=== PATIENT | female | born 1960 | race Hispanic/Latino ===

== ENCOUNTER → 2019-11-29 | Outpatient (CLI) | payer OTHER ==
[2019-11-29 09:21] LABS: BASOPHILS % (AUTO) 0.9 % (0.0-5.0); EOSINOPHILS % (AUTO) 2.3 % (0.0-8.0); HEMATOCRIT 42.2 % (36-48); LYMPHOCYTES % (AUTO) 39.1 % (21.0-51.0); MEAN CORPUSCULAR HEMOGLOBIN 27.7 pg (27.0-33.0); MEAN CORPUSCULAR HGB CONC 31.3 g/dL (32.0-36.0); MEAN CORPUSCULAR VOLUME 88.7 fL (79-99); MONOCYTES % (AUTO) 6.6 % (3.0-13.0); NEUTROPHILS % (AUTO) 50.9 % (40.0-77.0); PLATELET COUNT (AUTO) 284 K/uL (130-400); RED BLOOD CELL COUNT(AUTO) 4.76 MIL/uL (4.00-5.50); RED CELL DISTRIBUTION WIDTH 13.2 % (11.0-15.5); WHITE BLOOD COUNT (AUTO) 6.6 K/uL (4.8-10.8)
[2019-11-29 09:39] LABS: HEMOGLOBIN A1C 6.3 % (4.0-6.0)
[2019-11-29 09:52] LABS: ALBUMIN 3.8 g/dL (3.5-5.0); BILIRUBIN,TOTAL 0.6 mg/dL (0.2-1.0); CREATININE 0.7 mg/dL (0.5-1.5); POTASSIUM 4.3 mmol/L (3.5-5.1); TOTAL PROTEIN, SERUM 7.7 g/dL (6.0-8.3)
== END | disposition home or self-care (01) ==
LOC: LAB 08:04
PROVIDERS: ATTEND Internal Medicine Endocrinology, Diabetes & Metabolism
DX: E11.65 Type 2 diabetes mellitus with hyperglycemia (principal); E78.2 Mixed hyperlipidemia; D51.0 Vitamin B12 deficiency anemia due to intrinsic factor deficiency
CPT/HCPCS: 36415; 80053; 80061; 82043; 82570; 82607; 83036; 85025

== ENCOUNTER 2020-04-20 23:39 | Emergency (ER) | payer OTHER ==
[2020-04-21 00:10] LABS: BASOPHILS % (AUTO) 0.6 % (0.0-5.0); EOSINOPHILS % (AUTO) 1.7 % (0.0-8.0); HEMATOCRIT 40.7 % (36-48); LYMPHOCYTES % (AUTO) 47.2 % (21.0-51.0); MEAN CORPUSCULAR HGB CONC 32.2 g/dL (32.0-36.0); MONOCYTES % (AUTO) 5.8 % (3.0-13.0); NEUTROPHILS % (AUTO) 44.5 % (40.0-77.0); PLATELET COUNT (AUTO) 298 K/uL (130-400); RED BLOOD CELL COUNT(AUTO) 4.68 MIL/uL (4.00-5.50); RED CELL DISTRIBUTION WIDTH 13.3 % (11.0-15.5); WHITE BLOOD COUNT (AUTO) 10.9 K/uL (4.8-10.8)
[2020-04-21 00:19] LABS: CREATININE 0.8 mg/dL (0.5-1.5); POTASSIUM 3.9 mmol/L (3.5-5.1)
[2020-04-21 00:21] LABS: INR 0.89 (0.85-1.15); PARTIAL THROMBOPLASTIN TIME 27.7 SEC (26.3-35.5); PROTHROMBIN TIME 9.7 SEC (9.6-11.6)
[2020-04-21 00:23] LABS: ALBUMIN 3.9 g/dL (3.5-5.0); BILIRUBIN,TOTAL 0.4 mg/dL (0.2-1.0); TOTAL PROTEIN, SERUM 7.8 g/dL (6.0-8.3)
== END 2020-04-21 01:41 | disposition home or self-care (01) ==
LOC: EDH 23:39
DX: R07.89 Other chest pain (principal); E11.9 Type 2 diabetes mellitus without complications; Z86.73 Personal history of transient ischemic attack (TIA), and cerebral infarction without residual deficits; Z87.891 Personal history of nicotine dependence
CPT/HCPCS: 36415; 71045; 80053; 82550; 84484; 85025; 85610; 85730; 93005

== ENCOUNTER → 2020-11-05 | Outpatient (CLI) | payer OTHER ==
[2020-11-05 09:56] LABS: BASOPHILS % (AUTO) 1.2 % (0.0-5.0); EOSINOPHILS % (AUTO) 2.2 % (0.0-8.0); HEMATOCRIT 44.2 % (36-48); LYMPHOCYTES % (AUTO) 43.3 % (21.0-51.0); MEAN CORPUSCULAR HEMOGLOBIN 27.7 pg (27.0-33.0); MEAN CORPUSCULAR HGB CONC 31.7 g/dL (32.0-36.0); MEAN CORPUSCULAR VOLUME 87.5 fL (79-99); MONOCYTES % (AUTO) 6.5 % (3.0-13.0); NEUTROPHILS % (AUTO) 46.7 % (40.0-77.0); PLATELET COUNT (AUTO) 314 K/uL (130-400); RED BLOOD CELL COUNT(AUTO) 5.05 MIL/uL (4.00-5.50); RED CELL DISTRIBUTION WIDTH 13.5 % (11.0-15.5); WHITE BLOOD COUNT (AUTO) 6.8 K/uL (4.8-10.8)
[2020-11-05 10:16] LABS: ALBUMIN 3.8 g/dL (3.5-5.0); BILIRUBIN,TOTAL 0.8 mg/dL (0.2-1.0); CREATININE 0.6 mg/dL (0.5-1.5); THYROID STIMULATING HORMONE 2.63 uIU/mL (0.36-3.74); TOTAL PROTEIN, SERUM 7.8 g/dL (6.0-8.3)
== END | disposition home or self-care (01) ==
LOC: LAB 08:14
DX: E11.69 Type 2 diabetes mellitus with other specified complication (principal)
CPT/HCPCS: 36415; 80053; 82043; 82270; 84443; 85025

== ENCOUNTER 2024-10-10 20:43 | Inpatient (IN) | payer BC, OTHER ==
[~2024-10-10] VITALS: Ht 144.8 cm; Wt 68.0 kg
--- NOTE | 2024-10-10 20:51 | NUR ---
REPORT TO ROLO HERNANDEZ
[2024-10-10 21:25] LABS: BASOPHILS # (AUTO) 0.02 K/uL (0.00-0.20); BASOPHILS % (AUTO) 0.1 % (0.0-5.0); EOSINOPHILS # (AUTO) 0.15 K/uL (0.00-0.70); EOSINOPHILS % (AUTO) 1.1 % (0.0-8.0); HEMATOCRIT 42.6 % (36-48); IMMATURE GRANULOCYTE ABSOLUTE 0.03 K/uL (0-1); LYMPHOCYTES # (AUTO) 0.9 K/uL (1.0-4.8); LYMPHOCYTES % (AUTO) 6.7 % (21.0-51.0); MEAN CORPUSCULAR HEMOGLOBIN 28.8 pg (27.0-33.0); MEAN CORPUSCULAR HGB CONC 33.3 g/dL (32.0-36.0); MEAN CORPUSCULAR VOLUME 86.4 fL (79-99); MONOCYTES # (AUTO) 0.3 K/uL (0.1-1.0); NEUTROPHILS # (AUTO) 12.5 K/uL (1.8-7.7); NEUTROPHILS % (AUTO) 89.9 % (40.0-77.0); PLATELET COUNT (AUTO) 285 K/uL (130-400); RED BLOOD CELL COUNT(AUTO) 4.93 MIL/uL (4.00-5.50); RED CELL DISTRIBUTION WIDTH 13.1 % (11.0-15.5); WHITE BLOOD COUNT (AUTO) 13.9 K/uL (4.8-10.8)
[2024-10-10] MEDS: PANTOPrazole 40 MG TAB DR PO ONE (21:30)
[2024-10-10] MEDS: morPHINE 2 MG SYG IM ONE (21:31)
--- NOTE | 2024-10-10 21:33 | HMCIMG ---
CHEST 1VW CLINICAL HISTORY: Upper back pain, epigastric pain? hiatal hernia COMPARISON: 04/21/2020 TECHNIQUE: Single view of the chest was obtained. FINDINGS: Lungs are clear. The cardiac size. Bones are normal to mildly enlarged but stable. The bony structures are within normal limits. IMPRESSION: Stable borderline heart size.
[2024-10-10 21:43] LABS: CREATININE 0.8 mg/dL (0.5-1.0); POTASSIUM 3.6 mmol/L (3.5-5.1)
--- NOTE | 2024-10-10 22:10 | ERN ---
ED Note History of Present Illness Stated Complaint: NUMBNESS Chief Complaint: Multiple Complaints Time Seen by MD: 20:51 Dictation: This is a 63-year-old female who presented to the emergency room stating that she was at work and after she reached home she began experiencing epigastric pain radiating to the back as well as to the left side of the chest and flank area. She also had a little bit of tingling in the lower jaw and she was concerned as she had TIA in the past that she wanted to get it checked out. No loss of consciousness no diaphoresis. She had some nausea but no vomitings. No diarrhea. No facial droop, diplopia motor weakness or seizure activity. No visual changes. Temperature 99.7 pulse 89 respirations 20 blood pressure 139/77 with a pulse oximetry of 99% on room air Her chronic medical problems include diabetes mellitus and a history of TIA in her 30s Allergies: Coded Allergies: No Known Allergies (Verified Allergy, Unknown, 04/21/20) Past Medical History Past Medical History: Diabetes-Type II, TIA Surgical History: Hysterectomy, Other, Surgical History Other: SINUS, RT HAND Family History: Negative Social History: Negative History: Not Applicable RN Note Reviewed/Agreed w/PFSH: Yes Review of System Dictation Constitutional: Negative for fever,chills, and weight loss Eyes: Negative for injury, pain,redness, and discharge ENT: Negative for injury,pain or swelling Cardiovascular: Positive for chest pain, denies palpitations, and edema Respiratory: Negative for shortness of breath, cough, and wheezing, Abdomen/GI: Positive for abdominal pain, nausea, denies vomiting, diarrhea, and constipation Back: Negative for injury and pain : Negative for injury, bleeding and discharge MS/Extremity: Negative for injury and deformity Skin: Negative for rash, and discoloration Neuro: Negative for headache, weakness, numbness, tingling, and seizure Psych: Negative for suicide ideation, homicidal ideation, and hallucinations Initial Vital Sign VS Vital Signs Date Time Temp Pulse Resp B/P (MAP) Pulse Ox O2 Delivery O2 Flow Rate FiO2 10/10/24 20:44 99.7 89 20 139/74 100 Room Air 10/10/24 22:58 0 21 Physical Exam Dictation General: awake, alert, NAD Head/Face: Normocephalic, atraumatic Eyes: PERRL, EOMI, vision at baseline ENT: oral cavity clear, TMs clear, no signs of infection Neck: Trachea midline, supple, no nuchal rigidity Cardiovascular: RRR, normal S1/S2, No MRGs, no JVD reproducible tenderness in the epigastric area Respiratory: CTAB, no respiratory distress, No rales or wheezes Abdomen: Soft, non-tender, non-distended, normal bowel sounds, no guarding or rebound. Skin: Warm, dry, normal turgor, no rash MS/Extremity: Pulses equal, no cyanosis, neurovascular intact, FROM, tenderness in the entire back muscles Neuro: COAx4, GCS 15, strength 5/5, CN 2-12 intact, normal cerebellar exam, normal gait, Psych: Normal behavior, mood, and affect normal Extremities-trace edema without any palpable cords, Homans sign is negative Results (Laboratory/Radiology) Laboratory/Radiology Laboratory Tests Test 10/10/24 21:19 White Blood Count 13.9 K/uL (4.8-10.8) H Red Blood Count 4.93 MIL/uL (4.00-5.50) Hemoglobin 14.2 g/dL (12.0-16.0) Hematocrit 42.6 % (36-48) Mean Corpuscular Volume 86.4 fL (79-99) Mean Corpuscular Hemoglobin 28.8 pg (27.0-33.0) Mean Corpuscular Hemoglobin Concent 33.3 g/dL (32.0-36.0) Red Cell Distribution Width 13.1 % (11.0-15.5) Platelet Count 285 K/uL (130-400) Mean Platelet Volume 10.4 fL (7.5-10.5) Immature Granulocyte % (Auto) 0.2 % (0-1) Neutrophils (%) (Auto) 89.9 % (40.0-77.0) H Lymphocytes (%) (Auto) 6.7 % (21.0-51.0) L Monocytes (%) (Auto) 2.0 % (3.0-13.0) L Eosinophils (%) (Auto) 1.1 % (0.0-8.0) Basophils (%) (Auto) 0.1 % (0.0-5.0) Neutrophils # (Auto) 12.5 K/uL (1.8-7.7) H Lymphocytes # (Auto) 0.9 K/uL (1.0-4.8) L Monocytes # (Auto) 0.3 K/uL (0.1-1.0) Eosinophils # (Auto) 0.15 K/uL (0.00-0.70) Basophils # (Auto) 0.02 K/uL (0.00-0.20) Absolute Immature Granulocyte (auto 0.03 K/uL (0-1) Nucleated Red Blood Cells 0.0 % (0.0-0.19) White Cell Morphology Comment See comments Sodium Level 140 mmol/L (136-145) Potassium Level 3.6 mmol/L (3.5-5.1) Chloride Level 104 mmol/L (101-111) Carbon Dioxide Level 27 mmol/L (21-32) Blood Urea Nitrogen 8 mg/dL (7-18) Creatinine 0.8 mg/dL (0.5-1.0) Glomerular Filtration Rate Calc 83 mL/min (>90) Random Glucose 164 mg/dL (70-105) H Total Calcium 9.1 mg/dL (8.5-10.1) Troponin I High Sensitivity < 4 ng/L (4-50) L Lipase 28 U/L (16-77) Labs Reviewed?: Yes EKG Comment: Lead EKG done on 10/10/2024 10:46 p.m. showed a sinus rhythm with a heart rate of 81, MO interval 178, QRS 76, QT/QTC 360/417. Impression normal sinus rhythm with nonspecific ST-T changes no acute ST elevations or deep ST depressions. Overall anterior leads it is low voltage Interpreted by Dr. Sagastume X-RAY Comment: PATIENT: JEANNINE TRUONG MR#: [id number] : 1960 SEX: F AGE: 63 LOCATION: ED ORDER 01 STATUS: REG ER REPORT#: [id number] SERVICE 00 REASON: Upper back pain, epugastric pain? hiatal hernia ORDERING PHYSICIAN: DONNIE SAGASTUME MD PROCEDURE: CXR1VW - CHEST 1VW CHEST 1VW CLINICAL HISTORY: Upper back pain, epigastric pain? hiatal hernia COMPARISON: 04/21/2020 TECHNIQUE: Single view of the chest was obtained. FINDINGS: Lungs are clear. The cardiac size. Bones are normal to mildly enlarged but stable. The bony structures are within normal limits. IMPRESSION: Stable borderline heart size. DICTATED BY: ROBERTA CALVO DO DATE: 10/10/242129 ELECTRONICALLY SIGNED BY: ROBERTA CALVO DO DATE: 10/10/242132 ED Course ED Course Orders Procedure Category Date Status Time Pantoprazole 40mg Tab PHA 10/10/24 Complete (Protonix 40mg Tab 21:00 Morphine 2mg Syg PHA 10/10/24 Complete (Morphine 2mg Syg) 21:00 Cbc With Differential LAB 10/10/24 Complete 20:55 Basic Metabolic Panel LAB 10/10/24 Complete 20:55 Lipase LAB 10/10/24 Complete 20:55 Urinalysis Profile LAB 10/10/24 Logged 20:55 Troponin I High LAB 10/10/24 Complete Sensitivity 21:01 Chest 1vw RAD 10/10/24 Resulted 21:01 12 Lead Ekg Tracing- EKG 10/10/24 Logged Technical 22:24 Ketorolac PHA 10/10/24 Complete Tromethamine 15mg/Ml 22:30 Cyclobenzaprine Hcl PHA 10/10/24 Complete (Cyclobenzaprine Hcl 22:30 Edm Admit Bridge Order ADM 10/11/24 Transmitted 00:18 Admit Orders ADM 10/11/24 Transmitted 00:18 Vital Signs Every 4 CPOE 10/11/24 Transmitted Hours 00:28 Activity: Ambulate W/ CPOE 10/11/24 Transmitted Assist 00:28 Heart Healthy Diet DIET 10/11/24 Transmitted Breakfast O2 Order RT 10/11/24 Transmitted 00:28 Cbc With Differential LAB 10/12/24 Verified 04:00 Basic Metabolic Panel LAB 10/12/24 Verified 04:00 Magnesium LAB 10/12/24 Verified 04:00 Acetaminophen 325 Tab PHA 10/11/24 In Process (Tylenol 325mg Tab 00:30 Acetaminophen 650mg PHA 10/11/24 In Process Supp (Tylenol 650mg 00:30 Lactulose 20 Gm/30 Ml PHA 10/11/24 In Process Udcup (Constulose 00:30 Docusate Sodium 100 PHA 10/11/24 In Process Mg Cap (Colace 100mg 00:30 Temazepam 15 Mg Cap PHA 10/11/24 In Process (Restoril 15 Mg Cap) 00:30 Ondansetron 4mg Inj PHA 10/11/24 In Process (Zofran 4mg Inj) 00:30 Hydralazine 20mg Inj PHA 10/11/24 In Process (Apresoline 20mg In 00:30 Apply Scds CPOE 10/11/24 Transmitted 00:28 Telemetry Monitoring CPOE 10/11/24 Transmitted 00:28 Initiate CRUZ 10/11/24 In Process Hyperglycemia Protoco 00:28 Insulin Regular, PHA 10/11/24 In Process Human 3ml (Humulin R 07:30 Aspirin 81mg Chew Tab PHA 10/11/24 In Process (Aspirin 81mg Chew 09:00 Atorvastatin 40mg PHA 10/11/24 In Process (Lipitor 40mg) 21:00 Echo 2-D Complete ECHO 10/11/24 Logged 00:31 Current Medications Medications (Trade) Dose Ordered Sig/Cale Route PRN Reason Start Time Stop Time Status Last Admin Dose Admin Cyclobenzaprine HCl (Cyclobenzaprine HCl) 5 mg ONCE ONCE PO 10/10/24 22:30 10/10/24 22:31 DC 10/10/24 22:48 Ketorolac Tromethamine (toRADol) 15 mg ONCE ONCE IV 10/10/24 22:30 10/10/24 22:31 DC 10/10/24 22:49 Morphine Sulfate (morPHINE 2MG SYG) 2 mg ONCE ONCE IM 10/10/24 21:00 10/10/24 21:01 DC 10/10/24 21:31 Pantoprazole Sodium (PROTonix 40MG TAB) 40 mg ONCE ONCE PO 10/10/24 21:00 10/10/24 21:01 DC 10/10/24 21:30 Vital Signs Date Time Temp Pulse Resp B/P (MAP) Pulse Ox O2 Delivery O2 Flow Rate FiO2 10/11/24 01:00 98.8 74 20 114/80 97 Room Air 10/11/24 01:00 97 Room Air* 0 21 10/10/24 22:58 99.1 75 18 127/65 98 Room Air* 0 21 10/10/24 20:44 99.7 89 20 139/74 100 Room Air We will perform diagnostic labs, advanced imaging and administer medications according to the patient's complaint. Once the results are available, will review and personally interpreted the labs to rule out any acute life-threatening emergency the trach require immediate intervention and treatment. I will then re-evaluate the patient after treatment and diagnostic exams have return to determine whether the patient requires any further testing, can safely be discharged home or need further admission to hospital for additional treatment and evaluation. 10:08 p.m. CBC showed a white count of 13.9 BNP 7 is within normal limits troponins are negative lipase is within normal limits. Chest x-ray showed a borderline heart but otherwise no acute infiltrates. 10:26 p.m. 12 lead EKGs still pending. Troponins negative lipase normal chest x-ray borderline cardiomegaly patient continues to complain of tenderness in the back and tingling of the right upper extremity as well as the jaw overall vague symptoms Patient was extremely anxious and stated that she still has pain in the chest and epigastric area and she had lot of family members who had strokes and heart attacks and she was uncomfortable going home and I it is reasonable to admit her for further cardiac workup HEART Score Response (Comments) Value History: Low suspicion (0) 0 EKG: Normal 0 Age: 45-65yrs (+1) 1 Risk Factors: 1-2 risk factors (+1) 1 Initial Troponin: Normal limit (0) 0 HEART Score Risk: Low Risk for MACE (1-3) Total 2 Medical Decision Making MDM MDM: Differential diagnosis: Chest pain, acute coronary syndrome, esophagitis, hiatal hernia pain, gastritis, musculoskeletal pain Rationale: Tests considered and ordered secondary to shared decision making include: labs, ECG and radiology Previous outside records reviewed: Old ER visits. Risk of complication and/or morbidity or mortality of patient management: None Medications-Per medication reconciliation Need for hospitalization: Patient does meet criteria for hospitalization. Need for emergency major/minor surgery: No There are no social concerns with this patient. Prescription drug management Prescriptions will include symptomatic care Patient's prior external medical records from other ER visits were reviewed by me as indicated. Prior testing and results from previous visits were reviewed. Prior tests were taken into account with medical decision making and resource utilization, independent historian/historians were used to obtain complete medical history. I independently interpreted the test that were performed, results were reviewed by me and considered findings on radiology if ordered. Medical management and examination interpretation discussions were had by me with other qualified healthcare professionals as indicated for the patient's care. Problem List Problem List: (1) Leukocytosis (2) Chest pain (3) ACS (acute coronary syndrome) (4) Diabetes mellitus (5) Personal history of TIA (transient ischemic attack) DX & DISP Disposition: Inpatient Decision to Admit Time: 11:40 Departure Impression: Primary Impression: Chest pain Additional Impressions: ACS (acute coronary syndrome), Diabetes mellitus, Personal history of TIA (transient ischemic attack), Leukocytosis, Tingling Condition: Stable Additional Instructions: Patient was informed of all the diagnostic labs and procedures conducted in the emergency room today and demonstrated understanding of the results. I personally reviewed and interpreted all the diagnostic exams performed in the ER today. The patient will be admitted to the hospital for further treatment and evaluation. Disposition-admit to facility Condition-stable/guarded Course-uncertain at this time Pain status-decreased Assessment-exam unchanged Admission Certification- I certify that the patients status is appropriate and is based on my best clinical judgment and the patient's condition as documented in the medical records Referrals: JESSE ANDREW MD (PCP) DONNIE SAGASTUME MD Oct 10, 2024 22:10
[2024-10-10] MEDS: CYCLOBENZAPRINE HCL 10 MG TABLET PO ONE (22:48)
[2024-10-10] MEDS: ketOROlac 15MG/ML VIAL (15MG/ML) IV ONE (22:49)
[2024-10-11] VITALS (9 sets, daily range): BP systolic 96–128; BP diastolic 41–80; PULSE 59–74; RESP 16–20; TEMP 97.4–98.7; O2SAT 97–98
[2024-10-11] MEDS ORDERED: ondanSETRON 4MG INJ IVP PRN (00:30)
[2024-10-11] MEDS ORDERED: doCUSate SODIUM 100 MG CAP PO PRN (00:30)
[2024-10-11] MEDS ORDERED: acetaMINOPHEN 650 MG SUPPOSITORY RC PRN (00:30)
[2024-10-11] MEDS ORDERED: LACTULOSE 20 GM/30 ML UDCUP PO PRN (00:30)
[2024-10-11] MEDS ORDERED: hydrALAZine 20MG/ML VIAL IV PRN (00:30)
--- NOTE | 2024-10-11 01:00 | NUR ---
NURSING PM NOTE REPORT RECEIVED FROM MARY BRIONES PATIENT ALERT AND ORIENTED TIMES 4. PLAN OF CARE OF CARE DISCUSSED WITH HER AND SHE VERBALIZED UNDERSTANDING. PATIENT HAS NO PAIN. SHE HAS BEEN SLEEPING ABOUT 5 HOURS TONIGHT. SHE IS AMBULATORY AROUND THE ROOM. CALL LIGHT WITHIN REACH, WILL CONTINUE TO MONITOR PATIENT.
[2024-10-11] MEDS: TEMAZepam 15 MG CAPSULE PO PRN (03:25)
[2024-10-11] MEDS: acetaMINOPHEN 325 MG TAB PO PRN (03:25)
[2024-10-11 03:29] LABS: APPEARANCE,URINE CLEAR (CLEAR); BILIRUBIN,URINE NEGATIVE (NEGATIVE); COLOR,URINE YELLOW (YELLOW); GLUCOSE, URINE (UA) NEGATIVE (NEGATIVE); KETONES,URINE 10 mg/dL (NEGATIVE); LEUKOCYTE ESTERASE ,URINE 250 Leu/uL (NEGATIVE); NITRATE,URINE NEGATIVE (NEGATIVE); OCCULT BLOOD,URINE NEGATIVE (NEGATIVE); PH,URINE 7.5 (5.0-8.0); PROTEIN,URINE 20 mg/dL (NEGATIVE); UROBILINOGEN,URINE 0.2 mg/dL (0.2-1.0)
[2024-10-11 03:38] LABS: ADD UA MICROSCOPIC YES
[2024-10-11 03:44] LABS: MUCUS,URINE RARE LPF (None Seen); SQUAMOUS EPITHELIAL CELL,UR MOD /HPF (0-2)
[2024-10-11] MEDS: INSULIN humuLIN R 100 UNIT/ML 3ML SQ SCH (05:12)
--- NOTE | 2024-10-11 07:47 | EKG ---
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
[2024-10-11] MEDS ORDERED: PoTASSium chloRIDE 20MEQ/100ML 100 ML IV PRN (08:00)
[2024-10-11] MEDS ORDERED: PoTASSium chl 10% ELIXIR 20MEQ 20 MEQ/15 ML UDCUP PO PRN (08:00)
[2024-10-11] MEDS ORDERED: METF-910 PO (08:09)
[2024-10-11] MEDS: PoTASSium chloRIDE 20MEQ ER 20 MEQ ERTAB PO PRN (08:19)
[2024-10-11] MEDS: ASPIRIN 81MG CHEW TAB PO SCH (08:19)
--- NOTE | 2024-10-11 09:38 | HP ---
[facility] HISTORY & PHYSICAL Date Patient Seen: Oct 11, 2024 Time of Visit: 09:35 Supervising Physician: Gil Mayo Primary Care Physician: Dr. Gregory Diaz ([facility]) Outpatient Specialists: NA Inpatient Consults: NA PROBLEM LIST: Sepsis Acute cystitis Leukocytosis with left bed shift Acute epigastric pain Hyperglycemia in the setting of type 2 diabetes mellitus Obesity BMI 32 Hx. T2DM, TIA HPI: This is a 63-year-old female with past medical history of type 2 diabetes mellitus, obesity, and TIA who came to the hospital with complaint of epigastric pain. According to the patient, she was at work when she felt this pain yesterday. When she went home she says the pain in the epigastric area radiated to the back and left chest. She also noticed pain in the mid back. She has some tingling sensation on all extremities. She denies any hemiplegia. Otherwise, she felt hot but no definite fever. She denies dysuria or constipation. She denies travel or contact with sick person. For these symptoms, she decided to come to the hospital for further evaluation. In ED, remarkable findings include WBC of 13.9. Neutrophil is 89.9. UA with Nitrate, leukocyte esterase, and WBC. CT abdomen and pelvis is pending. PAST MEDICAL HX: Diabetes mellitus TIA PAST SURGICAL HX: Hysterectomy Right hand surgery SOCIAL HISTORY: Denies tobacco, ETOH, or illicit drug use Lives with She still is active working in a [employer] center Coded Allergies: No Known Allergies (Verified Allergy, Unknown, 04/21/20) REVIEW OF SYSTEMS: General: No Fever, No Chills, No Night Sweats, No Fatigue, No Malaise, No Appetite HEENT: No Head Aches, No Visual Changes, No Eye Pain, No Ear Pain, No Dysphas ia, No Sinus Congestion, No Post Nasal Drip, No Sore Throat Pulmonary: No Dyspnea; No Cough, No Pleuritic Chest Pain Cardiovascular: No: Chest Pain, Palpitations, Orthopnea, Paroxysmal Noc. Dyspnea, Edema, Lt Headedness Gastrointestinal: No: Nausea, Vomiting, yes Abdominal Pain, Diarrhea, Constipation, Melena, Hematochezia Genitourinary: No Dysuria, No Frequency, No Incontinence, No Hematuria, No Retention Musculoskeletal: No: other, neck pain, shoulder pain, arm pain, back pain, hand pain, leg pain, foot pain Skin: No Urticaria, No Rash Neurological: No: Weakness, Numbness, Incoordination, Change in speech, Confusion, Seizures PHYSICAL EXAM: GENERAL: alert, weak, awake oriented x 3 HEENT: EOMI, Sclera non icteric, moist mucosa NECK: Supple, no JVD, trachea midline LUNGS: Clear breath sounds bilaterally. No wheezes HEART: Regular rate and rhythm. Normal S1 and S2, without murmurs ABD: Abdomen soft, nontender. Bowel sounds present EXT: No clubbing cyanosis or edema NEURO: Alert and oriented to person, follows commands Vital Signs (last 8hr) Date Time Temp Pulse Resp B/P (MAP) Pulse Ox O2 Delivery O2 Flow Rate FiO2 10/11/24 08:29 98 Room Air* 0 21 10/11/24 08:10 98.4 69 17 96/41 98 Room Air 10/11/24 04:00 98.8 72 20 110/76 98 Room Air LABS: Hematology Labs: Test 10/10/24 21:19 Range/Units White Blood Count 13.9 H 4.8-10.8 K/uL Red Blood Count 4.93 4.00-5.50 MIL/uL Hemoglobin 14.2 12.0-16.0 g/dL Hematocrit 42.6 36-48 % Mean Corpuscular Volume 86.4 79-99 fL Mean Corpuscular Hemoglobin 28.8 27.0-33.0 pg Mean Corpuscular Hemoglobin Concent 33.3 32.0-36.0 g/dL Red Cell Distribution Width 13.1 11.0-15.5 % Platelet Count 285 130-400 K/uL Mean Platelet Volume 10.4 7.5-10.5 fL Immature Granulocyte % (Auto) 0.2 0-1 % Neutrophils (%) (Auto) 89.9 H 40.0-77.0 % Lymphocytes (%) (Auto) 6.7 L 21.0-51.0 % Monocytes (%) (Auto) 2.0 L 3.0-13.0 % Eosinophils (%) (Auto) 1.1 0.0-8.0 % Basophils (%) (Auto) 0.1 0.0-5.0 % Neutrophils # (Auto) 12.5 H 1.8-7.7 K/uL Lymphocytes # (Auto) 0.9 L 1.0-4.8 K/uL Monocytes # (Auto) 0.3 0.1-1.0 K/uL Eosinophils # (Auto) 0.15 0.00-0.70 K/uL Basophils # (Auto) 0.02 0.00-0.20 K/uL Absolute Immature Granulocyte (auto 0.03 0-1 K/uL Nucleated Red Blood Cells 0.0 0.0-0.19 % White Cell Morphology Comment See comments Chemistry Labs: Test 10/11/24 05:03 10/10/24 21:19 Range/Units Whole Blood Glucose 134 H 70-110 MG/DL Sodium Level 140 136-145 mmol/L Potassium Level 3.6 3.5-5.1 mmol/L Chloride Level 104 101-111 mmol/L Carbon Dioxide Level 27 21-32 mmol/L Blood Urea Nitrogen 8 7-18 mg/dL Creatinine 0.8 0.5-1.0 mg/dL Glomerular Filtration Rate Calc 83 >90 mL/min Random Glucose 164 H 70-105 mg/dL Total Calcium 9.1 8.5-10.1 mg/dL Troponin I High Sensitivity < 4 L 4-50 ng/L Lipase 28 16-77 U/L DIAGNOSTICS / RADIOLOGY RESULTS: [ ] PLAN NEURO: Minimize central acting medications as possible. Maintain fall precautions, adequate lighting during the day PULMONARY: Supplemental 02 as needed. Maintain aspiration precautions at all times CARDIOVASCULAR: Follow hemodynamics. Vital signs per facility protocol GI & NUTRITION: Continue with nutritional support. Continue stool softeners and laxatives as needed. PPI GI cocktail KIDNEYS & ELECTROLYTES: Strict monitoring of intake, output and overall fluid balance. Avoid nephrotoxic medications to the extent possible. Medications to be dosed according to renal function. Monitor electrolytes and replace as needed ENDOCRINE: Maintain blood glucose between 100-180 at all times. Hypoglycemia protocol in place ISS CHeck A1C INFECTIOUS DISEASE: Trend temperature, WBC and procalcitonin level Follow cultures, deescalate antibiotics as soon as possible. Panculture if new onset fever Follow urine and blood cultures Abx: Zosyn x1 Rocephine 10/11 ONCOLOGY/HEMATOLOGY/COAGULATION: Monitor for s/s of bleeding Monitor hemoglobin, coagulation studies as needed SKIN: Pressure ulcer prevention per facility protocol Specialty mattress ORTHO/REHAB: Continue PT/OT Prophylaxis: Continue GI and DVT prophylaxis Code Status: Full Resuscitation Disposition: TBD Other: Total patient care time exceeds 35 minutes excluding all procedures. KARLA GIRON [facility] Oct 11, 2024 09:38
[2024-10-11] MEDS: ZOSYN 3.375GM +NS 50ML IV ONE (09:45)
[2024-10-11] MEDS: 0.9%NACL 1000ML 2,040 ML IV ONE (09:45)
[2024-10-11 09:50] LABS: BASOPHILS # (AUTO) 0.03 K/uL (0.00-0.20); BASOPHILS % (AUTO) 0.4 % (0.0-5.0); EOSINOPHILS % (AUTO) 1.3 % (0.0-8.0); HEMATOCRIT 39.8 % (36-48); IMMATURE GRANULOCYTE ABSOLUTE 0.02 K/uL (0-1); LYMPHOCYTES # (AUTO) 1.6 K/uL (1.0-4.8); LYMPHOCYTES % (AUTO) 21.4 % (21.0-51.0); MEAN CORPUSCULAR HEMOGLOBIN 28.5 pg (27.0-33.0); MEAN CORPUSCULAR HGB CONC 32.7 g/dL (32.0-36.0); MEAN CORPUSCULAR VOLUME 87.3 fL (79-99); MONOCYTES # (AUTO) 0.3 K/uL (0.1-1.0); MONOCYTES % (AUTO) 4.4 % (3.0-13.0); NEUTROPHILS # (AUTO) 5.4 K/uL (1.8-7.7); NEUTROPHILS % (AUTO) 72.2 % (40.0-77.0); PLATELET COUNT (AUTO) 264 K/uL (130-400); RED BLOOD CELL COUNT(AUTO) 4.56 MIL/uL (4.00-5.50); RED CELL DISTRIBUTION WIDTH 13.3 % (11.0-15.5); WHITE BLOOD COUNT (AUTO) 7.5 K/uL (4.8-10.8)
[2024-10-11 09:57] LABS: HEMOGLOBIN A1C 6.3 % (4.0-6.0)
[2024-10-11 10:07] LABS: ALBUMIN 3.3 g/dL (3.5-5.0); BILIRUBIN,TOTAL 0.7 mg/dL (0.2-1.0); CREATININE 0.8 mg/dL (0.5-1.0); MAGNESIUM 1.9 mg/dL (1.80-2.40); POTASSIUM 3.7 mmol/L (3.5-5.1); TOTAL PROTEIN, SERUM 6.8 g/dL (6.0-8.3)
[2024-10-11 11:02] LABS: SARS-CoV-2, RNA, NAAT NEGATIVE SARS CoV-2 (NEGATIVE)
[2024-10-11 11:04] LABS: INFLUENZA TYPE A Negative For Type A (NEGATIVE); INFLUENZA TYPE B Negative For Type B (NEGATIVE)
[2024-10-11] MEDS ORDERED: traMADol HCL 50 MG TABLET PO PRN (11:30)
[2024-10-11] MEDS ORDERED: LIDOCAINE HCL 2% VISCOUS 30 ML, MAG/ALUM/SIMETH 30ML 30 ML, DICYCLOMINE HCL 20 MG PO PRN (11:30)
--- NOTE | 2024-10-11 11:38 | NUR ---
DCP: HOME met with pt and Pamela Deng [phone]. Pt lives at home with , works at [employer]. Pt states she is active and drives, able to complete ADLS on her own. Uses no DME or in home care services. CP is Flo Diaz and uses [facility] for rx. Denies dc needs and will return home at dc Addendum: 10/11/24 at 1139 by EVITA CHOE SS Amended: Links added.
--- NOTE | 2024-10-11 12:11 | HMCIMG ---
CT ABDOMEN/PELVIS W/O CONTRAST REASON: sepsis, rule out pyelonephritis COMPARISON: None. FINDINGS: Lung bases are clear. There are no focal liver lesions. There are normal-appearing kidneys.. Spleen and pancreas appear unremarkable. The gallbladder appears normal as well. Bowel loops appear unremarkable. This includes normal appearance of the appendix There is no evidence of free fluid or intraperitoneal air. There are no focal fluid collections. Aorta and retroperitoneum appear normal as do pelvic soft tissue structures. The anterior abdominal wall is intact. Osseous structures appear unremarkable. There are normal-appearing lumbar vertebral bodies. Interspace heights appear preserved and spinal canal appears widely patent. IMPRESSION: 1. Negative noncontrast CT abdomen and pelvis. CT was performed with one or more following dose reduction techniques: automated exposure control, adjustment of the mA and kv according to patient's size, or use of a iterative reconstruction technique.
--- NOTE | 2024-10-11 14:45 | NUR ---
gave report to MARY Cannon. All questions answered.
[2024-10-11] MEDS: 0.9%NACL 1000ML 1,000 ML IV SCH (16:13)
[2024-10-11] MEDS: CEFTRIAXONE 2GM VIAL IVPB SCH (16:26)
[2024-10-11] MEDS ORDERED: acetaMINOPHEN 325 MG TAB PO PRN (16:30)
[2024-10-11] MEDS: FAMOTIDINE 20MG VIAL IV SCH (20:21)
[2024-10-11] MEDS: atorVAStatin 40 MG TABLET PO SCH (20:21)
[2024-10-12] MEDS: MAGNESIUM 2GM PREMIX 50ML 50 ML IV PRN (00:27)
[2024-10-12] MEDS ORDERED: MAGNESIUM 2GM PREMIX 50ML 50 ML IV PRN ×2 (00:30)
--- NOTE | 2024-10-12 00:49 | HMCSR ---
APPROVED REPORT EXAM: Two-dimensional and M-mode echocardiogram with Doppler and color Doppler. Study Details: Hx:DM, obesity, and TIA INDICATION ICD: Chest Pain 2D Dimensions RVDd3.7 cmLVEF(%)69.3 (>50%)LVED Vol(simp.)73.7 mL IVSd0.6 (0.7-1.1cm)FS(%)39 %LVES Vol(simp.)26.5 mL LVDd3.9 (3.8-5.6cm)LA (2D)3.7 (1.6-4.0cm)LVEF(%, simp.)64 % PWd0.7 (0.7-1.1cm)Ao Root(2D)2.9 (2.0-3.7cm)LA ESV INDEX (4CH)22.00 mL/m2 IVSs0.9 cmLVOT diam1.7 (1.8-2.4cm)LA ESV INDEX (2CH)27.00 mL/m2 LVDs2.4 (2.5-4.0cm)LA ESV INDEX (BP)24.50 mL/m2 PWs1.0 cm Deformation Strain Apical 428.0 % Apical 223.0 % Apical 326.0 % Global Amqcsy75.0 % Aortic Valve AoV VTI0.3 mAo Mean GR4.0 mmHgLVOT VTI0.13 m JENNIFER (VMAX)1.1 cm2AVA (VTI) 1.1 cm2 Mitral Valve MV E Vmax70.8 cm/sDECEL Nylx712 ms MV A Vmax58.2 cm/sP 1/2 T51 ms E/A ratio1.2MVA (PHT)4.3 cm2 MR Max PG47 mmHg TDI E/E' Medial9.8E/E' Lateral6.2 Medial E' Peak V7.20 cm/sLateral E' Peak V11.40 cm/s Pulmonary Valve PV VTI0.27 mPV Mean GR3 mmHg Tricuspid Valve TR Vmax2.1 m/sRAP (EST) 8 wpVvGXBZ78.4 mmHg TR Peak GR17.4 mmHg Left Ventricle The left ventricle is normal in size. No regional wall motion abnormalities noted. There is normal le ft ventricular wall thickness. Left ventricular systolic function is normal, estimated LVEF is 55%. T he left ventricular diastolic function is normal. Right Ventricle The right ventricle is normal size. The right ventricular systolic function is normal. Atria The left atrium size is normal. The right atrium size is normal. Aortic Valve Aortic valve is trileaflet. The leaflets are mildly thickened and calcified. Trace aortic regurgitati on. There is no aortic valvular stenosis. Mitral Valve The mitral valve is normal in structure and function. The leaflets are mildly thickened and calcified . Trace mitral regurgitation. There is no mitral valve stenosis. Tricuspid Valve The tricuspid valve is normal in structure and function. Trace tricuspid regurgitation. RVSP is 17 mm Hg. Pulmonic Valve Pulmonic valve is not well visualized. Great Vessels The aortic root is normal in size. IVC is not well visualized. Pericardium No pericardial effusion. Other Information Quality : Good Conclusion There is normal left ventricular wall thickness. No regional wall motion abnormalities noted. Left ventricular systolic function is normal, estimated LVEF is 55%. The left ventricular diastolic function is normal. Trace aortic regurgitation. Trace mitral regurgitation. Trace tricuspid regurgitation. RVSP is 17 mmHg. No pericardial effusion.
[2024-10-12 03:56] VITALS: BP 110/54; PULSE 59; RESP 18; TEMP 97.6
[2024-10-12 05:09] LABS: BASOPHILS # (AUTO) 0.04 K/uL (0.00-0.20); BASOPHILS % (AUTO) 0.8 % (0.0-5.0); EOSINOPHILS # (AUTO) 0.37 K/uL (0.00-0.70); EOSINOPHILS % (AUTO) 7.4 % (0.0-8.0); HEMATOCRIT 39.9 % (36-48); IMMATURE GRANULOCYTE ABSOLUTE 0.01 K/uL (0-1); LYMPHOCYTES # (AUTO) 1.6 K/uL (1.0-4.8); LYMPHOCYTES % (AUTO) 31.5 % (21.0-51.0); MEAN CORPUSCULAR HEMOGLOBIN 28.3 pg (27.0-33.0); MEAN CORPUSCULAR HGB CONC 31.6 g/dL (32.0-36.0); MEAN CORPUSCULAR VOLUME 89.5 fL (79-99); MONOCYTES # (AUTO) 0.5 K/uL (0.1-1.0); MONOCYTES % (AUTO) 10.4 % (3.0-13.0); NEUTROPHILS # (AUTO) 2.5 K/uL (1.8-7.7); NEUTROPHILS % (AUTO) 49.7 % (40.0-77.0); PLATELET COUNT (AUTO) 238 K/uL (130-400); RED BLOOD CELL COUNT(AUTO) 4.46 MIL/uL (4.00-5.50); RED CELL DISTRIBUTION WIDTH 13.4 % (11.0-15.5)
[2024-10-12 05:21] LABS: CREATININE 0.6 mg/dL (0.5-1.0); MAGNESIUM 2.6 mg/dL (1.80-2.40); POTASSIUM 4.3 mmol/L (3.5-5.1)
[2024-10-12 08:00] VITALS: BP 113/62; PULSE 68; RESP 18; TEMP 97.8
[2024-10-12 08:21] VITALS: O2SAT 98
[2024-10-12] MEDS: ENOXAPARIN SODIUM 40 MG/0.4 ML SYRINGE SQ SCH (08:21)
--- NOTE | 2024-10-12 09:18 | PN ---
[facility] PROGRESS NOTE Date Patient Seen: Oct 12, 2024 Time of Visit: 09:17 Supervising Physician: Primary Care Physician: Dr. Gregory Diaz ([facility]) Outpatient Specialists: NA Inpatient Consults: NA PROBLEM LIST: Sepsis Acute complicated cystitis Leukocytosis with left band shift Acute epigastric pain Hyperglycemia in the setting of type 2 diabetes mellitus- HgbA1C 6.3 Obesity BMI 32 Hx. T2DM, TIA INTERVAL HISTORY: 10/12 patient is awake alert not in acute distress no acute event overnight. She remains on room air sat 97%. No fever overnight with a T-max of 98.1. Heart rate is morning is 59 respiratory rate 18. Blood pressure 110/54. So far urine culture is negative to date with hematology WBC is down to 5.0 from 13 to days ago and platelet count is 230. Chemistry with unremarkable kidney function. Glucose 121. Total calcium 7.9 magnesium is 2.6. Continue current antibiotic Rocephin and wait for cultures. Her CT scan of the abdomen is negative for any pyelonephritis. Disposition depending on urine culture. REVIEW OF SYSTEMS: General: No Fever, No Chills, No Night Sweats, No Fatigue, No Malaise, No Appetite HEENT: No Head Aches, No Visual Changes, No Eye Pain, No Ear Pain, No Dysphasia, No Sinus Congestion, No Post Nasal Drip, No Sore Throat Pulmonary: No Dyspnea; No Cough, No Pleuritic Chest Pain Cardiovascular: No: Chest Pain, Palpitations, Orthopnea, Paroxysmal Noc. Dys pnea, Edema, Lt Headedness Gastrointestinal: No: Nausea, Vomiting, yes Abdominal Pain, Diarrhea, Constipation, Melena, Hematochezia Genitourinary: No Dysuria, No Frequency, No Incontinence, No Hematuria, No Retention Musculoskeletal: No: other, neck pain, shoulder pain, arm pain, back pain, hand pain, leg pain, foot pain Skin: No Urticaria, No Rash Neurological: No: Weakness, Numbness, Incoordination, Change in speech, Confusion, Seizures PHYSICAL EXAM: GENERAL: alert, weak, awake oriented x 3 HEENT: EOMI, Sclera non icteric, moist mucosa NECK: Supple, no JVD, trachea midline LUNGS: Clear breath sounds bilaterally. No wheezes HEART: Regular rate and rhythm. Normal S1 and S2, without murmurs ABD: Abdomen soft, nontender. Bowel sounds present EXT: No clubbing cyanosis or edema NEURO: Alert and oriented to person, follows commands Vital Signs (last 8hr) Date Time Temp Pulse Resp B/P (MAP) Pulse Ox O2 Delivery O2 Flow Rate FiO2 10/12/24 03:56 97.5 59 18 110/54 97 Room Air LABS: Hematology Labs: Test 10/12/24 05:01 10/10/24 21:19 Range/Units White Blood Count 5.0 # 4.8-10.8 K/uL Red Blood Count 4.46 4.00-5.50 MIL/uL Hemoglobin 12.6 12.0-16.0 g/dL Hematocrit 39.9 36-48 % Mean Corpuscular Volume 89.5 79-99 fL Mean Corpuscular Hemoglobin 28.3 27.0-33.0 pg Mean Corpuscular Hemoglobin Concent 31.6 L 32.0-36.0 g/dL Red Cell Distribution Width 13.4 11.0-15.5 % Platelet Count 238 130-400 K/uL Mean Platelet Volume 10.6 H 7.5-10.5 fL Immature Granulocyte % (Auto) 0.2 0-1 % Neutrophils (%) (Auto) 49.7 40.0-77.0 % Lymphocytes (%) (Auto) 31.5 21.0-51.0 % Monocytes (%) (Auto) 10.4 3.0-13.0 % Eosinophils (%) (Auto) 7.4 0.0-8.0 % Basophils (%) (Auto) 0.8 0.0-5.0 % Neutrophils # (Auto) 2.5 1.8-7.7 K/uL Lymphocytes # (Auto) 1.6 1.0-4.8 K/uL Monocytes # (Auto) 0.5 0.1-1.0 K/uL Eosinophils # (Auto) 0.37 0.00-0.70 K/uL Basophils # (Auto) 0.04 0.00-0.20 K/uL Absolute Immature Granulocyte (auto 0.01 0-1 K/uL Nucleated Red Blood Cells 0.0 0.0-0.19 % White Cell Morphology Comment See comments Chemistry Labs: Test 10/12/24 05:03 10/12/24 05:01 10/11/24 09:42 10/10/24 21:19 Range/Units Whole Blood Glucose 104 70-110 MG/DL Sodium Level 144 136-145 mmol/L Potassium Level 4.3 3.5-5.1 mmol/L Chloride Level 111 101-111 mmol/L Carbon Dioxide Level 27 21-32 mmol/L Blood Urea Nitrogen 7 7-18 mg/dL Creatinine 0.6 0.5-1.0 mg/dL Glomerular Filtration Rate Calc 101 >90 mL/min Random Glucose 121 H 70-105 mg/dL Total Calcium 7.9 L 8.5-10.1 mg/dL Magnesium Level 2.60 H 1.80-2.40 mg/dL Hemoglobin A1c 6.3 H 4.0-6.0 % Estimated Average Glucose (eAG) 134 H 70-126 mg/dL Total Bilirubin 0.7 0.2-1.0 mg/dL Aspartate Amino Transf (AST/SGOT) 38 H 10-37 U/L Alanine Aminotransferase (ALT/SGPT) 48 12-78 U/L Alkaline Phosphatase 86 50-136 U/L Troponin I High Sensitivity < 4 L 4-50 ng/L Total Protein 6.8 6.0-8.3 g/dL Albumin 3.3 L 3.5-5.0 g/dL TSH 3rd Generation 0.763 0.450-4.500 uIU/mL Lipase 28 16-77 U/L DIAGNOSTICS / RADIOLOGY RESULTS: [ ] PLAN NEURO: Minimize central acting medications as possible. Maintain fall precautions, adequate lighting during the day PULMONARY: Supplemental 02 as needed. Maintain aspiration precautions at all times CARDIOVASCULAR: Follow hemodynamics. Vital signs per facility protocol GI & NUTRITION: Continue with nutritional support. Continue stool softeners and laxatives as needed. PPI GI cocktail KIDNEYS & ELECTROLYTES: Strict monitoring of intake, output and overall fluid balance. Avoid nephrotoxic medications to the extent possible. Medications to be dosed according to renal function. Monitor electrolytes and replace as needed ENDOCRINE: Maintain blood glucose between 100-180 at all times. Hypoglycemia protocol in place ISS CHeck A1C INFECTIOUS DISEASE: Trend temperature, WBC and procalcitonin level Follow cultures, deescalate antibiotics as soon as possible. Panculture if new onset fever Follow urine and blood cultures Abx: Zosyn x1 Rocephine 10/11 ONCOLOGY/HEMATOLOGY/COAGULATION: Monitor for s/s of bleeding Monitor hemoglobin, coagulation studies as needed SKIN: Pressure ulcer prevention per facility protocol Specialty mattress ORTHO/REHAB: Continue PT/OT Prophylaxis: Continue GI and DVT prophylaxis Code Status: Full Resuscitation Disposition: TBD Other: Total patient care time exceeds 35 minutes excluding all procedures. KARLA GIRON [employer] Oct 12, 2024 09:18
[2024-10-12 12:00] VITALS: BP 120/60; PULSE 65; RESP 18; TEMP 97.6
[2024-10-12] MEDS ORDERED: CEFD300C3 PO (14:03)
--- NOTE | 2024-10-12 14:13 | DS ---
[facility] DISCHARGE SUMMARY Date Patient Seen: Oct 12, 2024 Time of Visit: 14:03 Supervising Physician: Kulwinder Parrish Primary Care Physician: Dr. Gregory Diaz ([facility]) Outpatient Specialists: LUDA Inpatient Consults: NA HOSPITAL COURSE: HPI This is a 63-year-old female with past medical history of type 2 diabetes mellitus, obesity, and TIA who came to the hospital with complaint of epigastric pain. According to the patient, she was at work when she felt this pain yesterday. When she went home she says the pain in the epigastric area radiated to the back and left chest. She also noticed pain in the mid back. She has some tingling sensation on all extremities. She denies any hemiplegia. Otherwise, she felt hot but no definite fever. She denies dysuria or constipation. She denies travel or contact with sick person. For these symptoms, she decided to come to the hospital for further evaluation. In ED, remarkable findings include WBC of 13.9. Neutrophil is 89.9. UA with Nitrate, leukocyte esterase, and WBC. CT abdomen and pelvis is pending. Hospital course Patient came to the hospital on 10/11 with complaint of epigastric pain. Patient was found to have negative troponin and EKG. She has urinalysis with positive protein, ketone, leukocyte esterase of 250, WBC of 11-25. Her CT scan of the abdomen was done without any acute changes. She was diagnosed with acute cystitis and was given Zosyn IV and IV fluid hydration. The following day her condition had improved and she feels so much better without any pain. Her urine culture is pending but she is requesting to go home. We will discharge her home with antibiotic cefdinir to take for seven days. PCP we will update her in regards to antibiotic if culture and sensitivity is available. Otherwise he is stable at discharge. We did echocardiogram with normal LVEF at 55%. PROCEDURES/ imaging REASON: sepsis, rule out pyelonephritis ORDERING PHYSICIAN: KARLA GIRON CNP PROCEDURE: ABD PEL WO - CT ABDOMEN/PELVIS W/O CONTRAST CT ABDOMEN/PELVIS W/O CONTRAST REASON: sepsis, rule out pyelonephritis COMPARISON: None. FINDINGS: Lung bases are clear. There are no focal liver lesions. There are normal-appearing kidneys.. Spleen and pancreas appear unremarkable. The gallbladder appears normal as well. Bowel loops appear unremarkable. This includes normal appearance of the appendix There is no evidence of free fluid or intraperitoneal air. There are no focal fluid collections. Aorta and retroperitoneum appear normal as do pelvic soft tissue structures. The anterior abdominal wall is intact. Osseous structures appear unremarkable. There are normal-appearing lumbar vertebral bodies. Interspace heights appear preserved and spinal canal appears widely patent. IMPRESSION: 1. Negative noncontrast CT abdomen and pelvis. 2D-Echo- 10/11 Conclusion There is normal left ventricular wall thickness. No regional wall motion abnormalities noted. Left ventricular systolic function is normal, estimated LVEF is 55%. The left ventricular diastolic function is normal. Trace aortic regurgitation. Trace mitral regurgitation. Trace tricuspid regurgitation. RVSP is 17 mmHg. No pericardial effusion. ACTIVE PROBLEM LIST at admission Sepsis Acute cystitis Leukocytosis with left bed shift Acute epigastric pain Hyperglycemia in the setting of type 2 diabetes mellitus Obesity BMI 32 Hx. T2DM, TIA Diagnosis at Discharge Sepsis Acute cystitis Leukocytosis with left band shift- resolved Acute epigastric pain- resolved Hyperglycemia in the setting of type 2 diabetes mellitus- HgbA1C 6.3 Obesity BMI 32 Hx. T2DM, TIA DISCHARGE MEDICATIONS: See below Pt hemodynamically stable and afebrile at time of discharge. PCP notified of patients admission, hospital course and discharge. New Medications: Cefdinir (Cefdinir) 300 Mg Capsule 300 MG PO BID, #14 CAP Continued Medications: Metformin HCl (Metformin HCl ER) 500 Mg Tab.er.24h 1 TAB PO BID PHYSICAL EXAM: GENERAL: alert, weak, awake oriented x 3 HEENT: EOMI, Sclera non icteric, moist mucosa NECK: Supple, no JVD, trachea midline LUNGS: Clear breath sounds bilaterally. No wheezes HEART: Regular rate and rhythm. Normal S1 and S2, without murmurs ABD: Abdomen soft, nontender. Bowel sounds present EXT: No clubbing cyanosis or edema NEURO: Alert and oriented to person, follows commands FOLLOW-UP: Follow-up with PCP in 2-3 days RECOMMENDATIONS: Adequate hydration Continue home medication metformin Carbohydrate control diet This case was seen and discussed with my supervising physician. More than 30 minutes spent on discharge process, including evaluation of the patient, discussion with nursing staff, medication reconciliation and follow-up appointments KARLA GIRON [facility] Oct 12, 2024 14:13
--- NOTE | 2024-10-12 15:03 | NUR ---
DISCHARGE PIV DC'D DISCHARGE INSTRUCTIONS GIVEN TO THE PATIENT PT. IS AWARE THAT A PRESCRIPTION WAS SENT TO HER PHARMACY PATIENT IS AWARE OF NEEDING TO FOLLOW UP WITH HER PCP ALL QUESTIONS ANSWERED PRIOR TO DISCHARGE
== END 2024-10-12 15:15 | disposition home or self-care (01) | DRG 872 ==
LOC: EDH 20:43 → EDHIP 10-11 00:18 → 3DH 10-11 14:31
PROVIDERS: ADMIT Internal Medicine Pulmonary Disease; ATTEND Internal Medicine Pulmonary Disease
DX: A41.9 Sepsis, unspecified organism (principal); N30.00 Acute cystitis without hematuria; I24.9 Acute ischemic heart disease, unspecified; E11.65 Type 2 diabetes mellitus with hyperglycemia; E66.9 Obesity, unspecified; Z68.32 Body mass index [BMI] 32.0-32.9, adult; Z90.710 Acquired absence of both cervix and uterus; Z86.73 Personal history of transient ischemic attack (TIA), and cerebral infarction without residual deficits; Y99.0 Civilian activity done for income or pay; Z79.82 Long term (current) use of aspirin; Z79.899 Other long term (current) drug therapy
CPT/HCPCS: 36415; 71045; 74176; 80048; 80053; 81001; 82948; 83036; 83690; 83735; 84443; 84484; 85025; 87086; 87635; 87804; 93005; 93306; 93356; 96372; 96374; 99285; G0378; J0696; J1650; J1885; J2270; J2543; J3475; J3490